=== PATIENT | female | born 1970 | race Caucasian/White ===

== ENCOUNTER → 2017-07-28 | Outpatient (CLI) | payer BC | LOC: CIMAGING 08:06 | PROVIDERS: ATTEND Nurse Practitioner | DX: K76.89 Other specified diseases of liver (principal); K83.8 Other specified diseases of biliary tract | CPT/HCPCS: 76705-PO ==

== ENCOUNTER → 2018-01-18 | Outpatient (CLI) | payer BC | LOC: CIMAGING 07:34 | PROVIDERS: ATTEND Internal Medicine | DX: K76.89 Other specified diseases of liver (principal) | CPT/HCPCS: 76705-PO ==